=== PATIENT | female | born 1960 | race Caucasian/White ===

== ENCOUNTER 2024-12-03 14:58 | Outpatient (AMB) | payer OTHER, SELFPAY ==
--- NOTE | 2024-12-03 15:06 | A.OFFVIS_ITS ---
Intake Visit Reasons: tremors Allergies oxycodone Allergy (Unknown, Verified 11/29/24 11:29) Unknown Penicillins Allergy (Unknown, Verified 11/29/24 11:29) Unknown Medication List - Last Reconciled 12/03/24 by Ysabel Bermeo MD cholecalciferol (vitamin D3) 50 mcg PO DAILY ibuprofen 600 mg PO Q8H PRN triamcinolone acetonide 0.1% 1 appl topical BID HPI Comments Details: This is a 64-year-old right-handed woman who has generally been in good health who comes in for evaluation of tremors that she notes inside her and in her head and hands particularly if she is stressed the can get quite prominent. Most times she can function normally and it does not affect her ability to function in any way including her handwriting. There is no family history of tremor although her mother had Parkinson's disease. For the last couple of years she has also had tingling in her feet and sometimes in the hands and on her back if she is lying on it for a while. It comes and goes. Back usually feeds tingly when she 1st wakes up. She has no history of diabetes. She has inactive bronchial asthma and a history of anemia. [facility] Surgical History (Updated 11/29/24 @ 11:22 by ANTONIA Kline) Hx of tonsillectomy Hx of hysterectomy H/O colonoscopy Family History (Updated 11/29/24 @ 11:23 by ANTONIA Kline) Mother Thyroid disease Sister Breast cancer Maternal Aunt Breast cancer Review of Systems Musc Reports tingling Neuro Reports memory loss, Reports tingling and Reports tremor(s) Psych Reports memory loss Physical Exam Neuro Other: ?Mini Mental Status Exam Level of Consciousness:?Alert.? Orientation:?Knows correct year, month, date, day and season.?Knows correct city, county and state. Knows correct location and floor.? Registration:?Able to register 3 objects.? Attention:?Serial 7's performed accurately.? Recall:?Able to recall 3 out of 3 objects.? Language:?Normal spontaneous speech, fluency, repetition, naming, comprehension, reading, and writing.? Total Score:?30/30.? Neurological Abnormal neurological findings:??none.? Mental Status:?Alert and oriented X 3.?Normal attention, orientation, memory, and affect.? Cranial Nerves:?Pupils are equal, round and reactive to light. Fundoscopy shows normal disc bilaterally. External occular muscles are intact. Visual malave are full, no ptosis. Face is symmetrical, no facial weakness or droop. Facial sensations are normal. Tongue protrudes in midline. Palate elevates symmetrically. Shoulder shrugging is normal.? Motor Examination:?Normal muscle tone, bulk and strength.?No atrophy or fasciculations.?No drift of the extended upper extremities.?Deep tendon reflexes are 2+.?Plantars are flexor.? Motor Strength:? Proximal Muscles (out of 5):?5 Distal Muscles (out of 5):?5 Neck Flexors (out of 5):?5 Neck Extensors (out of 5):?5 Deltoid (out of 5):?5 Biceps (out of 5):?5 Triceps (out of 5):?5 Serratus Anterior (out of 5):?5 Wrist Extensors (out of 5):?5 APB (out of 5):?5 Finger Spread (out of 5):?5 Ileopsoas (out of 5):?5 Quadriceps (out of 5):?5 Hamstrings (out of 5):?5 Tibialis Anterior (out of 5):?5 Peronei (out of 5):?5 EDB (out of 5):?5 Gastrocnemius (out of 5):?5 Straight Leg Raising:?90 degrees.? Sensory Exam:?Normal light touch, temperature, pinprick, vibration and joint-position sensations.?Rhomberg sign is absent.? Coordination:?No ataxia,?no titubation,?wewtkh-hv-rpjx, iqxz-okls-[id number] test, and rapid alternating movements were normal.? Gait Exam:?Within normal limits.? Cerebellar Signs:?Aqpceh-[id number] and tjzf-ad-sxve is normal.?No dysdiadochokinesia.? Extrapyramidal System:?No tremor or?rigidity, normal facial expressions.?No bradykinesia. No bradyphrenia. Normal arm swing and posture. No propulsion or retropulsion.? Speech:?Normal,?no dysphasia or dysarthria.? General Examination GENERAL APPEARANCE:??normal,?in no acute distress?,?normal,?in no acute distress.? HEAD:??normocephalic,?atraumatic.? EYES:??sclera non-icteric,?conjunctiva clear.? EARS:??auditory canal clear,?tympanic membrane intact, clear.? NOSE:??no lesions.? ORAL CAVITY:??gums normal,?mucosa moist,?no lesions.? THROAT:??clear.? NECK/THYROID:??no cervical lymphadenopathy,?thyroid normal,?neck supple, full range of motion,?no carotid bruit.? SKIN:??no rashes,?no significant birthmarks.? HEART:??S1, S2 normal,?no murmurs?,?S1, S2 normal,?no murmurs.? LUNGS:??clear anteriorly and posteriorly?,?clear anteriorly and posteriorly.? CHEST:??no gross rib deformity,?clear to auscultation.? BACK:??normal exam of spine.? MUSCULOSKELETAL:??normal.? EXTREMITIES:??no edema?,?no edema.? PERIPHERAL PULSES:??normal.? PSYCH:??alert, oriented,?cognitive function intact,?cooperative with exam?,?alert, oriented,?cognitive function intact,?cooperative with exam.? 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 NCV LE for neuropathy Orders: Orders NE electromyogram (EMG) Today G62.9 - Polyneuropathy, unspecified NE nerve conduction velocity Today G62.9 - Polyneuropathy, unspecified Coding Level of Care Code New Pt Level 5 (79950) Diagnoses Benign essential tremor G25.0 Sensory neuropathy G62.9
--- OUTSIDE RECORDS SUMMARY | 2024-12-03 19:23 | XMS_ITS | Clinical Summary ---
Author Organization [facility] [address] [place] [address] [place] [phone] Phone Care Team Providers Care Casting Cleaner Name Role Phone Pamela Lal MD Primary Care Provider [phone] Allergies Active Allergy Reactions Criticality Noted Date Comments Oxycodone 11/08/2018 Liquid form Penicillins 11/08/2018 Medications triamcinolone (KENALOG) 0.1 % ointment APPLY LOCALLY TWICE A DAY, APPT NEEDED FOR FURTHER REFILLS 2 Active cholecalciferol (VITAMIN D-3) 50 mcg (2,000 unit) tablet Take 1 tablet (2,000 Units total) by mouth 1 (one) time each day. 4 Active calcium carbonate-emperatriz calciferol (Calcium 500 + D) 500 mg-10 mcg (400 unit) per tablet Take 1 tablet by mouth 2 (two) times a day. 4 Active cyclobenzaprine (FLEXERIL) 5 mg tablet Take 1 tablet (5 mg total) by mouth at bedtime as needed. 4 Active ibuprofen (ADVIL,MOTRIN) 600 mg tablet Take 1 Tablet by mouth every 8 hours as needed for Pain., Active alendronate (FOSAMAX) 70 mg tablet Take 1 Tablet by mouth every 7 days for 360 days Active minocycline 4 % foam Apply 1 Dose topically 1 (one) time each day. 60 g 1 5 Active erythromycin-be nzoyl peroxide (BENZAMYCIN) gel Apply topically at bedtime. 46.6 g 2 5 12/14/19 25 Active cholecalciferol (Vitamin D3) 50 mcg (2,000 unit) tablet Take 1 tablet (2,000 Units total) by mouth 1 (one) time each day. 90 tablet 2 5 Active erythromycin-be nzoyl peroxide (BENZAMYCIN) gel Apply topically at bedtime. 46.6 g 2 5 11/23/19 25 Encounters Date Type Department Care Team Description 09/09/2024 2:15 PM EDT Clinic Lab Collection Walk-In Clinic - [facility] [address] [place] [id number] Infective urethritis 09/09/2024 Telephone Internal Medicine - [facility] [address] [facility] [address] [place] [address] Pamela Lal MD from Last 3 Months Immunizations Immunization Administration Dates Next Due Influenza Quadravalent, MDCK , 0.5ml, preservative free (Flucelvax) 6mo and older 12/06/2018 Surgical History Surgery Date Site/Laterality Comments OTHER SURGICAL HISTORY PROCEDURE: MO ANESTHESIA VAGINAL HYSTERECTOMY INCL BIOPSY TONSILLECTOMY PROCEDURE: HISTORICAL TONSILLECTOMY COLONOSCOPY 2016 PROCEDURE: HISTORICAL COLONOSCOPY HYSTERECTOMY Medical History Medical History Date Comments Elevated liver enzymes 2016 DX:Elevat ed liver enzymes Family History Medical History Relation Name Comments Breast cancer Aunt mat Other: blood clot Father Thyroid disease Mother Breast cancer Sister 45 Relation Name Status Comments Aunt mat Alive Father Mother Sister 45 Social History Tobacco Use Types Packs/Day Years Used Date Smoking Tobacco: Never Smokeless Tobacco: Never Tobacco Cessation:Counseling Given: Not Answered Alcohol Use Standard Drinks/Week Comments No 0 (1 standard drink = 0.6 oz pur e alcohol) Housing Instability Answer Date Recorde d Are you worried that in the next 2 months you may not have stable housing? No 02/29/2024 Food Access & Nutrition Answer Date Rec orded Do you have access to a vari ety of food including fruits and vegetables? Yes 02/29/2024 Access to Healthcare Answer Date Record ed Within the last 3 months, chaya w many times did you visit the emergency department for your medical care? 0 02/29/2024 Health Literacy Answer Date Recorded How often do you need to hav e someone help you when you read instructions, pamphlets, or other written material from your doctor or pharmacy? Never 02/29/2024 Caregiver: How often do you need to have someone help you when you read instructions, pamphlets, or other written material from your doctor or pharmacy? Not on file 02/29/2024 Financial Risk Answer Date Recorded How hard is it for you to pa y for the very basics like food, housing, medical care, and air conditioning / heating? Not very hard 02/29/2024 Transportation Answer Date Recorded Has the lack of transportati on kept you from meetings, work, or from getting things needed for daily living? No Has the lack of transportati on kept you from medical appointments or from getting medications? No 02/29/2024 Social Isolation Answer Date Recorded How often do you feel lonely or isolated from ose around you? Never 02/29/2024 Food Risk Answer Date Recorded Within the past 12 months we worried whether our food would run out before we got money to buy more. Never true 02/29/2024 Within the past 12 months th e food we bought just didn't last and we didn't have money to get more. Never true 02/29/2024 Dependent Care Answer Date Recorded Do you need help finding or paying for care for your loved ones. For example, children teacher or elderly care for an older adult? No 02/29/2024 Education Answer Date Recorded Do you think completing more education or training, like finishing a GED, going to college, or learning a trade, would be helpful for you? N/A 02/29/2024 Employment and Income Answer Date Recor ded During the last four weeks, have you been actively looking for work? No 02/29/2024 Living Situation Answer Date Recorded What is your living situation? Unrecognized valu e 02/29/2024 Comments Unknown Sex and Gender Information Value Date Recorded Sex Assigned at Not on file Legal Sex Female 1:37 AM EST Gender Identity Not on file Sexual Orientation Not on file Obstetrics History Para Term AB IAB SAB Ectopic Multiple Livin g Live Births 3 3 3 3 Date Outcome GA Total Labor Labor/2nd/3rd Weight Sex Type Anes PTL Radha A1 A5 Name Clin Term Term Term Last Filed Vital Signs Vital Sign Reading Time Taken Comments Blood Pressure 126/82 08/30/2024 8:46 AM EDT Pulse 75 08/30/2024 8:46 AM EDT Temperature 36.2 C (97.2 F) 08/30/2024 8:46 AM EDT Respiratory Rate 18 08/30/2024 8:46 AM EDT Oxygen Saturation 96% 08/30/2024 8:46 AM EDT Inhaled Oxygen Concentration - - Weight 70.8 kg (156 lb) 08/30/2024 8:46 AM EDT Height 162.6 cm (5' 4.02 ) 08/30/2024 8:46 AM ED T Body Mass Index 26.76 08/30/2024 8:46 AM EDT Plan of Treatment Upcoming Encounters Date Type Department Care Team (Late st Contact Info) Description 09/05/2025 9:00 AM EDT Office Visit Internal Medicine - [address] [place] [address] Pamela Lal MD [address] [place] [phone] Health Maintenance Due Date Last Done Comments DTaP,Tdap,and Td Vaccines (1 - Tdap) 1980 Cervical Cancer Screening: Pap Smear 1982 Pneumococcal Vaccine: 50+ Years (1 of 1 - PCV) 04/20/2011 Zoster Vaccines (1 of 2) 04/20/2011 HIV Screening 01/15/2022 Hepatitis C Screening 01/15/2022 COVID-19 Vaccine ( season) 2024 02/18/2021, 06/16/2020, 05/19/2020 Influenza Vaccine (#1) 2024 9, 11/27/2017, 03/21/2016 Social Influencers of Health Screening 02/28/2025 02/29/2024 Colorectal Cancer Screening: Colonoscopy 07/07/2025 07/08/2015 Breast Cancer Screening 02/08/2026 02/08/19, 01/27/2023, 01/19/2022 Cholesterol Screening (Lipid Panel) 09/13/2029 09/13/2024, 08/11/2023, 08/11/2023, Additional history exists RSV Immunization Adult Patients (1 - 1-dose 75+ series) 2036 Depression Screening Completed 02/29/2024 HIB Vaccines Aged Out No longer eligi ble based on patient's age to complete this topic HPV Vaccines Aged Out No longer eligi ble based on patient's age to complete this topic Hepatitis A Vaccines Aged Out No long er eligible based on patient's age to complete this topic Hepatitis B Vaccines Aged Out No long er eligible based on patient's age to complete this topic IPV Vaccines Aged Out No longer eligi ble based on patient's age to complete this topic MMR Vaccines Aged Out No longer eligi ble based on patient's age to complete this topic Meningococcal ACWY Vaccine Aged Out N o longer eligible based on patient's age to complete this topic Meningococcal B Vaccine Aged Out No l onger eligible based on patient's age to complete this topic RSV Immunization Patients Under 20 months Aged Out No longer eligible based on patient's age to complete this topic Varicella Vaccines Aged Out No longer eligible based on patient's age to complete this topic Procedures Procedure Name Priority Date/Time Associated Diagnosis Comments COMPREHENSIVE METABOLIC PANEL Routine 09/13/2024 9:17 AM EDT Vitamin D deficiency Adult general medical examination Other fatigue LIPID PANEL WITH REFLEX TO DIRECT LDL Routine 09/13/2024 9:17 AM EDT Vitamin D deficiency Adult general medical examination Other fatigue COMPLETE BLOOD COUNT Routine 09/13/2024 9:17 AM EDT Vitamin D deficiency Adult general medical examination Other fatigue THYROID STIMULATING HORMONE Routine 09/13/2024 9:17 AM EDT Vitamin D deficiency Adult general medical examination Other fatigue VITAMIN B12 Routine 09/13/2024 9:17 AM EDT Vitamin D deficiency Adult general medical examination Other fatigue VITAMIN D 25 HYDROXY Routine 09/13/2024 9:17 AM EDT Vitamin D deficiency Adult general medical examination Other fatigue MONTILLA URINE CULTURE TUBE Routine 09/09/2024 2:13 PM EDT Infective urethritis URINALYSIS WITH REFLEX MICROSCOPIC AND CULTURE Routine 09/09/2024 2:13 PM EDT Infective urethritis URINALYSIS WITH REFLEX MICROSCOPIC AND CULTURE Routine 09/09/2024 2:13 PM EDT Infective urethritis CULTURE URINE Routine 09/09/2024 2:13 PM EDT Infective urethritis MG MAMMO DIGITAL SCREENING W MUMTAZ BILAT Routine 02/09/2024 8:48 AM EST Encounter for screening mammogram for breast cancer HM COLONOSCOPY Routine 07/08/2015 from Last 3 Months or Most Recently Relevant to Health Maintenance Results * (ABNORMAL) Lipid panel with reflex to direct LDL (09/13/2024 9:17 AM EDT) Cholesterol 206(H) 0 - 200 mg/dL LAB CHEMISTRY METHOD 09/13/2024 2:56 PM EDT [facility] Triglycerides 48 0 - 150 mg/dL LAB CHEMISTRY METHOD 09/13/2024 2:56 PM T [facility] HDL 69 >=40 mg/dL LAB CHEMISTRY METHOD 09/13/2024 2:56 PM [facility] LDL Calculated 127(H) 0 - 100 mg/dL LAB CHEMISTRY METHOD 09/13/2024 2:56 PM T [facility] Comment:Estimated LDL Calcul ated using equation: Total cholesterol - HDL cholesterol - (Triglycerides/5) VLDL Cholesterol Rufino 9.6 mg/dL LAB CHEMISTRY METHOD 09/13/2024 2:56 PM T [facility] Non HDL Chol. (LDL+VLDL) 137 <145 mg/dL LAB CHEMISTRY METHOD 09/13/2024 2:56 PM T [facility] Chol/HDL Ratio 3.0 0.0 - 4.4 LAB CHEMISTRY METHOD 09/13/2024 2:56 PM [facility] Blood Venous blood specimen / Unknown Venipuncture / Unknown 09/13/2024 9:17 AM EDT 09/13/2024 9:17 AM EDT us Pamela Lal MD LAB BLOOD ORDERABLES Final Res ult Performing Organization Address City/[facility]/ZIP Co de Phone Number [facility] [address] [place] [address], [place] [phone] * (ABNORMAL) Vitamin D 25 hydroxy (09/13/2024 9:17 AM EDT) [facility] Vit D, 25-Hydroxy 20.4(L) 30.0 - 80.0 ng/mL LAB CHEMISTRY METHOD 09/13/2024 3:22 PM EDT [facility] Blood Venous blood specimen / Unknown Venipuncture / Unknown 09/13/2024 9:17 AM EDT 09/13/2024 9:17 AM EDT us Pamela Lal MD LAB BLOOD ORDERABLES Final Res ult Performing Organization Address [facility] Co de Phone Number [facility] [address] [place] [address], [place] [phone] * (ABNORMAL) Complete blood count (09/13/2024 9:17 AM EDT) [facility] WBC 4.8 4.8 - 10.8 K/[facility] LAB HEMETOLOGY METHOD 09/13/2024 11:50 AM EDT [facility] RBC 4.90(H) 3.80 - 4.80 M/[facility] LAB HEMETOLOGY METHOD 09/13/2024 11:50 AM EDT [facility] Hemoglobin 14.6 11.5 - 16.0 g/dL LAB HEMETOLOGY METHOD 09/13/2024 11:50 AM EDT [facility] Hematocrit 44.1 35.0 - 47.0 % LAB HEMETOLOGY METHOD 09/13/2024 11:50 AM EDT [facility] MCV 90.7 79.0 - 98.0 FL LAB HEMETOLOGY METHOD 09/13/2024 11:50 AM EDT [facility] MCH 30.0 27.0 - 32.0 pcg LAB HEMETOLOGY METHOD 09/13/2024 11:50 AM EDT [facility] MCHC 33.1 32.0 - 37.0 g/dL LAB HEMETOLOGY METHOD 09/13/2024 11:50 AM EDT [facility] RDW 11.8 11.0 - 15.0 % LAB HEMETOLOGY METHOD 09/13/2024 11:50 AM EDT [facility] Platelets 235 130 - 400 K/mcL LAB HEMETOLOGY METHOD 09/13/2024 11:50 AM EDT [facility] MPV 9.6 7.0 - 11.0 FL LAB HEMETOLOGY METHOD 09/13/2024 11:50 AM EDT [facility] NRBC 0.0 <1.0 % LAB HEMETOLOGY METHOD 09/13/2024 11:50 AM EDT [facility] NRBC Absolute 0.00 <0.10 K/mcL LAB HEMETOLOGY METHOD 09/13/2024 11:50 AM [facility] Blood Venous blood specimen / Unknown Venipuncture / Unknown 09/13/2024 9:17 AM EDT 09/13/2024 9:17 AM EDT us Pamela Lal MD LAB BLOOD ORDERABLES Final Res ult [facility] [address] [place] [address], * Thyroid stimulating hormone (09/13/2024 9:17 AM EDT) TSH 0.48 0.40 - 4.00 mcIU/mL LAB CHEMISTRY METHOD 09/13/2024 3:22 PM EDT [facility] Blood Venous blood specimen / Unknown Venipuncture / Unknown 09/13/2024 9:17 AM EDT 09/13/2024 9:17 AM EDT Pamela Lal MD LAB BLOOD ORDERABLES Final Res ult Performing Organization Address City/[facility]/ZIP Co de Phone Number [facility] [address] [place] [address], [place] [phone] * Vitamin B12 (09/13/2024 9:17 AM EDT) Pathologist [facility] Vitamin B-12 445 250 - 900 pcg/mL LAB CHEMISTRY METHOD 09/13/2024 2:56 PM EDT [facility] Blood Venous blood specimen / Unknown Venipuncture / Unknown 09/13/2024 9:17 AM EDT 09/13/2024 9:17 AM EDT Pamela Lal MD LAB BLOOD ORDERABLES Final Res ult Performing Organization Address City/[facility]/ZIP Co de Phone Number [facility] [address] [place] [address], [place] [phone] * (ABNORMAL) Comprehensive metabolic panel (09/13/2024 9:17 AM EDT) [facility] Sodium 141 133 - 145 mmol/L LAB CHEMISTRY METHOD 09/13/2024 3:19 PM EDT [facility] Potassium 4.5 3.5 - 5.5 mmol/L LAB CHEMISTRY METHOD 09/13/2024 3:19 PM EDT [facility] Chloride 109 96 - 110 mmol/L LAB CHEMISTRY METHOD 09/13/2024 3:19 PM EDT [facility] CO2 28 21 - 32 mmol/L LAB CHEMISTRY METHOD 09/13/2024 3:19 PM EDT [facility] Anion Gap 4 3 - 11 LAB CHEMISTRY METHOD 09/13/2024 3:19 PM [facility] Glucose 84 70 - 100 mg/dL LAB CHEMISTRY METHOD 09/13/2024 3:19 PM [facility] BUN 17 5 - 25 mg/dL LAB CHEMISTRY METHOD 09/13/2024 3:19 PM [facility] Creatinine 0.82 0.50 - 1.10 mg/dL LAB CHEMISTRY METHOD 09/13/2024 3:19 PM [facility] eGFR 80 >=60 mL/min/1. 73m2 LAB CHEMISTRY METHOD 09/13/2024 3:19 PM [facility] Comment:Calculation based on the Chronic Kidney Disease Epidemiology Collaboration (CKD-EPI) equation refit without adjustment for race. BUN/Creatinine Ratio 20.7 LAB CHEMISTRY METHOD 09/13/2024 3:19 PM [facility] Calcium 9.1 8.5 - 10.5 mg/dL LAB CHEMISTRY METHOD 09/13/2024 3:19 PM [facility] AST (SGOT) 67(H) 10 - 42 unit/L LAB CHEMISTRY METHOD 09/13/2024 3:19 PM [facility] ALT (SGPT) 32 10 - 60 unit/L LAB CHEMISTRY METHOD 09/13/2024 3:19 PM [facility] Alkaline Phosphatase 84 42 - 121 unit/L LAB CHEMISTRY METHOD 09/13/2024 3:19 PM [facility] Total Protein 6.7 6.0 - 8.0 g/dL LAB CHEMISTRY METHOD 09/13/2024 3:19 PM [facility] Albumin 3.9 3.2 - 5.0 g/dL LAB CHEMISTRY METHOD 09/13/2024 3:19 PM [facility] Total Bilirubin 0.6 0.0 - 1.4 mg/dL LAB CHEMISTRY METHOD 09/13/2024 3:19 PM [facility] Blood Venous blood specimen / Unknown Venipuncture / Unknown 09/13/2024 9:17 AM EDT 09/13/2024 9:17 AM EDT us Pamela Lal MD LAB BLOOD ORDERABLES Final Res ult [facility] [address] [place] [address], [place] [phone] * (ABNORMAL) Urinalysis with reflex microscopic and culture (09/09/2024 2:13 PM EDT) Specific [place] Urine LAB URINALYSIS - AUTOMATED METHOD 09/09/2024 8:29 PM EDT [facility] Comment:Unable to interpret due to color interference. pH, Urine LAB URINALYSIS - AUTOMATED METHOD 09/09/2024 8:29 PM EDT [facility] Comment:Unable to interpret due to color interference. Leukocytes, Urine LAB URINALYSIS - AUTOMATED METHOD 09/09/2024 8:29 PM EDT [facility] Comment:Unable to interpret due to color interference. Nitrite, Urine LAB URINALYSIS - AUTOMATED METHOD 09/09/2024 8:29 PM EDT [facility] Comment:Unable to interpret due to color interference. Protein, Urine LAB URINALYSIS - AUTOMATED METHOD 09/09/2024 8:29 PM EDT [facility] Comment:Unable to interpret due to color interference. Glucose, Urine LAB URINALYSIS - AUTOMATED METHOD 09/09/2024 8:29 PM EDT [facility] Comment:Unable to interpret due to color interference. Ketones, Urine LAB URINALYSIS - AUTOMATED METHOD 09/09/2024 8:29 PM EDT [facility] Comment:Unable to interpret due to color interference. Urobilinogen, Urine LAB URINALYSIS - AUTOMATED METHOD 09/09/2024 8:29 PM EDT [facility] Comment:Unable to interpret due to color interference. Bilirubin, Urine LAB URINALYSIS - AUTOMATED METHOD 09/09/2024 8:29 PM EDT [facility] Comment:Unable to interpret due to color interference. Blood, Urine LAB URINALYSIS - AUTOMATED METHOD 09/09/2024 8:29 PM EDT [facility] Comment:Unable to interpret due to color interference. RBC, Urine 5.7(H) 0 - 4 /HPF LAB URINALYSIS - AUTOMATED METHOD 09/09/2024 8:29 PM EDT [facility] WBC, Urine 73.5(H) 0 - 4 /HPF LAB URINALYSIS - AUTOMATED METHOD 09/09/2024 8:29 PM EDT [facility] Squamous Epithelial, Urine 8 0 - 60 /LPF LAB URINALYSIS - AUTOMATED METHOD 09/09/2024 8:29 PM EDT [facility] Bacteria, Urine Many(A) Negative /HPF LAB URINALYSIS - AUTOMATED METHOD 09/09/2024 8:29 PM EDT [facility] Hyaline Casts, Urine 0.38 0 - 3 /LPF LAB URINALYSIS - AUTOMATED METHOD 09/09/2024 8:29 PM EDT [facility] Urine Urine specimen obtained by clean catch procedure / Unknown Non-blood Collection / Unknown 09/09/2024 2:13 PM EDT 09/09/2024 2:13 PM EDT us Pamela Lal MD LAB URINE ORDERABLES Final Res ult [facility] [address] [place] [address], * Montilla urine culture tube (09/09/2024 2:13 PM EDT) Extra Tube Hold for add-ons. 09/09/2024 8:01 PM EDT [facility] Comment:Auto resulted. Urine Urine specimen obtained by clean catch procedure / Unknown Non-blood Collection / Unknown 09/09/2024 2:13 PM EDT 09/09/2024 2:13 PM EDT Pamela Lal MD LAB URINE ORDERABLES Final Res ult [facility] [address] [place] [address], [place] [phone] * (ABNORMAL) Culture urine (09/09/2024 2:13 PM EDT) Culture, Urine >=100,000 CFU/mL Escherichia coli(A) TERA 09/11/2024 10:06 AM EDT [facility] Comment: This is an edited result. Previous organism was Gram negative bacilli on 09/10/2024 at 1345 EDT. Urine Urine specimen obtained by clean catch procedure / Unknown Non-blood Collection / Unknown 09/09/2024 2:13 PM EDT 09/09/2024 8:29 PM EDT Narrative Organism Antibiotic Method Susceptibility Escherichia coli Amoxicillin/Clavulanate TERA 16 ug/ml: Intermediate Escherichia coli Ampicillin/Sulbactam TERA >=32 ug/ml: Resistant Escherichia coli Piperacillin/Tazobactam TERA <=4 ug/ml: Susceptible Escherichia coli Cefazolin (Urine) TERA 8 ug/ml: Susceptible Escherichia coli Cefoxitin TERA <=4 ug/ml: Susceptible Escherichia coli Ceftazidime TERA <=0.5 ug/ml: Susceptible Escherichia coli Ceftriaxone TERA <=0.25 ug/ml: Susceptible Escherichia coli Cefepime TERA <=0.12 ug/ml: Susceptible Escherichia coli Meropenem TERA <=0.25 ug/ml: Susceptible Escherichia coli Amikacin TERA 4 ug/ml: Susceptible Escherichia coli Gentamicin TERA <=1 ug/ml: Susceptible Escherichia coli Ciprofloxacin TERA <=0.06 ug/ml: Susceptible Escherichia coli Levofloxacin TERA <=0.12 ug/ml: Susceptible Escherichia coli Nitrofurantoin TERA <=16 ug/ml: Susceptible Escherichia coli Trimethoprim/Sulfamethoxazole TERA <=20 ug/ml: Susceptible Pamela Lal MD LAB MICROBIOLOGY - GENERAL ORD ERABLES Final Result [facility] [address] [place] [address], * MG Mammo Digital Screening w Mumtaz bilat (02/09/2024 8:48 AM EST) Anatomical Region Laterality Modality Breast Bilateral Mammography 02/09/2024 3:48 PM EST Impressions 02/09/2024 3:51 PM EST 1. No mammographic evidence of malignancy 2. Scattered fibroglandular tissue BI-RADS CATEGORY: 2 - BENIGN RECOMMENDATION: Screening bilateral mammogram is recommended in 1 year. Mammo Location: [facility], [address] [place] [address], [id number], . -------- FINAL REPORT -------- Dictated By: Jasmine Dailey Dictated Date: 02/09/2024 15:48 ET Assigned Physician: Jasmine Dailey Reviewed and Electronically Signed By: Jasmine Dailey Signed Date: 02/09/2024 15:51 ET Workstation ID: [id number] Transcribed By: Self Edit Transcribed Date: 02/09/2024 15:48 ET Narrative 02/09/2024 3:51 PM EST A BILATERAL DIGITAL 3D SCREENING MAMMOGRAPHY HISTORY: Routine screening. Family history of breast cancer in sister and aunt COMPARISON: Multiple priors dating back to 01/19/2022 Technique: Bilateral full field digital mammography (3D) was performed using standard CC and MLO projections CAD was used to evaluate this mammogram. FINDINGS: Right: No suspicious masses, groups of microcalcification or areas of architectural distortion identified. Stable typically benign parenchymal asymmetries. Left: No suspicious masses, groups of microcalcification or areas of architectural distortion identified. Stable typically benign parenchymal asymmetries.Stable superior breast focal asymmetry. BREAST DENSITY: B - There are scattered areas of fibroglandular density. Procedure Note Jasmine Dailey MD - 02/09/2024 A BILATERAL DIGITAL 3D SCREENING MAMMOGRAPHY HISTORY: Routine screening. Family history of breast cancer in sister andaunt COMPARISON: Multiple priors dating back to 01/19/2022 Technique: Bilateral full field digital mammography (3D) was performedusing standard CC and MLO projections CAD was used to evaluate this mammogram. FINDINGS: Right: No suspicious masses, groups of microcalcification or areas ofarchitectural distortion identified. Stable typically benign parenchymalasymmetries. Left: No suspicious masses, groups of microcalcification or areas ofarchitectural distortion identified. Stable typically benign parenchymalasymmetries.Stable superior breast focal asymmetry. BREAST DENSITY: B - There are scattered areas of fibroglandular density. IMPRESSION: 1. No mammographic evidence of malignancy 2. Scattered fibroglandular tissue BI-RADS CATEGORY: 2 - BENIGN RECOMMENDATION: Screening bilateral mammogram is recommended in 1 year. Mammo Location: [facility], [address] [place] [address], [phone], . -------- FINAL REPORT -------- Dictated By: Jasmine Dailey Dictated Date: 02/09/2024 15:48 ET Assigned Physician: Jasmine Dailey Reviewed and Electronically Signed By: Jasmine Dailey Signed Date: 02/09/2024 15:51 ET Workstation ID: [id number] Transcribed By: Self Edit Transcribed Date: 02/09/2024 15:48 ET Pamela Lal MD IMG BI PROCEDURES Final Result * Colonoscopy (07/08/2015) Colonoscopy No Interpretation , Abstracted Anatomical Region Laterality Modality Other Historical Provider HEALTH MAINTENANCE Final Result from Last 3 Months or Most Recently Relevant to Health Maintenance Insurance [employer] Care Teams Casting Cleaner Relationship Specialty Start Date End Date Pamela Lal MD [address] [facility] [address] [place] [address] PCP - General Internal Medicine 02/09/24
--- OUTSIDE RECORDS SUMMARY | 2024-12-03 19:23 | XMS_ITS | Clinical Summary ---
Author Organization [employer] Address [address] [facility] [place] [place] [address] Care Team Providers Care Nuclear Physics Professor Name Role Phone No, Pcp HIDE SORTER Primary Care Provider Unavailabl e Allergies Active Allergy Reactions Criticality Noted Date Comments Ibuprofen Swelling 03/21/2016 Oxycodone Rash Low 03/21/2016 Penicillins Anaphylaxis High 03/31/2014 Tylenol Jr Strength Rash,Other (See Comments) Low 0 03/21/2016 Medications No known medications Immunizations Immunization Administration Dates Next Due Fluarix Quadrivalent Prefilled Syringe 7 Social History Tobacco Use Types Packs/Day Years Used Date Smoking Tobacco: Never Smokeless Tobacco: Never Comments No Sex and Gender Information Value Date Recorded Sex Assigned at Not on file Legal Sex Female 3:39 AM EDT Gender Identity Not on file Sexual Orientation Not on file Last Filed Vital Signs Vital Sign Reading Time Taken Comments Blood Pressure 102/64 03/28/2018 1:46 PM EST Pulse 66 03/28/2018 1:46 PM EST Temperature 36.6 C (97.9 F) 03/31/2014 9:55 AM EST Respiratory Rate 12 03/28/2018 1:46 PM EST Oxygen Saturation 98% 03/28/2018 1:46 PM EST Inhaled Oxygen Concentration - - Weight 68.5 kg (151 lb) 03/28/2018 1:46 PM EST Height 163.8 cm (5' 4.5 ) 03/28/2018 1:46 PM EST Body Mass Index 25.52 03/28/2018 1:46 PM EST Plan of Treatment Health Maintenance Due Date Last Done Comments Colorectal Cancer: COLONOSCO PY Screening every 10 yrs (or Modifier) 1961 Depression: Screening Annual ly using PHQ-2/9 in Adults 18 yrs or above (or HM Modifier)([facility]) 04/20/1979 Hepatitis C Virus Infection in Adolescents and Adults: Screening (or Modifier) ([facility]) 04/20/1979 SDOH Screening Reminder: Vidhi colvin for all adults ([facility]) 04/20/1979 Tobacco Smoking Cessation: i n Adults excluding Women: Behavioral and Pharmacotherapy Interventions ([facility]) 04/20/1979 DTaP/Tdap/Td Vaccines ([facility]) (1 - Tdap) 1980 Colorectal Cancer Screening 45 -75 Yrs (or HM Modifier) 2006 Colorectal Cancer: FLEXIBLE SIGMOIDOSCOPY Screening every 5 yrs 2006 Colorectal Cancer: Fecal Imm unochemical Test (FIT) Annually [facility] 2006 Colorectal Cancer: High-sens itivity gFOBT Screening Annually [facility] 2006 Colorectal Cancer: Stool Col oguard Screening every 3 yrs 2006 Colorectal Cancer:CT Colonog amado Screening every 5 yrs 2006 Breast Cancer: Screening Vidhi vinicius age 50-74 yrs (or HM Modifier)([facility]) 04/20/2011 Pneumococcal Vaccination Scr eening: Patients 50+ yrs of age ([facility]) (1 of 1 - PCV) 04/20/2011 Zoster/Shingles Vaccine Seri es Screening: Adults aged 18+ yrs (or HM Modifiers)([facility]) (1 of 2) 04/20/2011 Flu Vaccination: Yearly for ages 18mos through 64 years (or Modifier)([facility]) 09/06/2024 03/21/2016 COVID-19 Vaccine Screening: Initial Series and Booster Status ([facility]) ( - 2023-25 season) 2024 RSV Vaccines (1 - 1-dose 75+ series) 2036 [employer] Not on file Care Teams Nuclear Physics Professor Relationship Specialty Start Date End Date No, Pcp, HIDE SORTER N/A Do not use PCP - General 03/31/14
--- OUTSIDE RECORDS SUMMARY | 2024-12-03 19:23 | XMS_ITS | Patient Health Record ---
Author Organization [facility] Address [address] [place] [address] Care Team Providers Care Property Disposal Manager Name Role Phone Hali JAY, [facility] Primary Care Provider Unavailab luis fernando Faby Shields Unavailable [phone] Allergies Allergen (clinical drug ingredient) Drug/Non Drug Allergy documented on EMR Reaction Allergy Type Onset Date Status amoxicillin Amoxicillin Unknown Drug Allergy Act sabrina doxycycline Doxycycline Hyclate rash Drug Allergy Active Reason For Referral No Information Medications Medication SIG (Take, Route, Frequency, Duration) Notes Start Date End Date Status Doxycycline Hyclate 100 MG 1 capsule Orally Once a day; Duration: 10 day(s) 12/04/2019 Not-Taking Clotrimazole 1 % 1 application to affected area Externally Twice a day Not-Takin g Calcium 1 tab Oral Active vitamin D Active Social History Tobacco Use: Social History Observation Description Date Details (start date - stop date) Former Smoker NA - NA Tobacco Use/Smoking Question Answer Notes Are you a: former smoker When did you stop smoking? 1989 Additional Findings: Tobacco Non-User Current no n-smoker Alcohol Screen Question Answer Notes Did you have a drink containing alcohol in the p ast year? No Points 0 Interpretation Negative Tobacco use other than smoking: Question Answer Notes Are you an other tobacco user? No Problems Problem Type SNOMED Code ICD Code Onset Dates Problem Status W/U Status Risk Notes Problem Acquired hallux valgus (65555164) Hallux valgus (acquired), left foot (M20.12) Active confirmed Problem Non-pressure chronic ulcer of other part of right foot limited to breakdown of skin (L97.511) Active confirmed Problem Acquired hallux valgus (38759595) Hallux valgus (acquired), right foot (M20.11) Active confirmed Problem Acquired hammer toe of right foot (3451064704485 105) Other hammer toe(s) (acquired), right foot (M20.41) Active confirmed Problem Plantar nerve lesion (498713224) Lesion of plantar nerve, 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) Active confirmed Plan Of Treatment Pending Test Test Name Order Date [id number] Plate 08/27/2018 [id number] 12/04/2019 72567- Debride <25 sq cm 01/08/2020 09554- Debride <25 sq cm 09/11/2018 [id number] SKIN/TISSUE 12/20/2019 Nail Panel 05/26/2017 Insurance Providers Payer Name Payer Address Payer Phone Subscriber Number Group Number Insured Name Patient Relationship to Insured Coverage Start Date Coverage End Date [employer] Choice POS [address] [address] [place] [address] [id number] Rachelle Ashley Self - patient is the insured Medical (General) History Medical History History ICD Code Chicken pox Surgical History Surgery Date(Month/Year) section 1990,1996,1999
== END 2024-12-03 15:21 | disposition home or self-care (01) ==
LOC: HO.HSM 14:59
PROVIDERS: PCP Internal Medicine; Visit Provider Psychiatry & Neurology Neurology
DX: G25.0 Essential tremor (principal); G62.9 Polyneuropathy, unspecified
CPT/HCPCS: 99204

== ENCOUNTER → 2024-12-03 14:58 | Outpatient (BNVA) | payer OTHER, SELFPAY | PROVIDERS: PCP Internal Medicine; Visit Provider Psychiatry & Neurology Neurology | DX: G25.0 Essential tremor (principal); G62.9 Polyneuropathy, unspecified | CPT/HCPCS: 99202 ==

== ENCOUNTER 2024-12-25 14:06 | Outpatient (REF) | payer OTHER, SELFPAY ==
--- NOTE | 2024-12-25 14:51 | EMG_ITS ---
Chief complaint:?Numbness Reason for referral: G62.9 Polyneuropathy, unspecified Procedure done: Bilateral lower extremities NCS/EMG Impression: Normal motor and sensory nerve conduction velocities of the lower extremities. Normal EMG of the left L4-S1 innervated muscles. Please see detailed neurophysiological report Coding: ? [id number] 1 extremity MTDD
--- OUTSIDE RECORDS SUMMARY | 2024-12-26 02:29 | XMS_ITS | Patient Health Record ---
Author Organization [facility] Address [address] [place] [address] Care Team Providers Care Corner Trimmer Operator Name Role Phone Hali JAY, [facility] Primary Care Provider Unavailab luis fernando Faby Shields Unavailable [phone] Allergies Allergen (clinical drug ingredient) Drug/Non Drug [...] Status Risk Notes Problem Acquired hallux valgus (48351976) Hallux valgus (acquired), left foot (M20.12) Active confirmed Problem Non-pressure chronic ulcer of other part of right foot limited to breakdown of skin (L97.511) Active confirmed Problem Acquired hallux valgus (71346317) Hallux valgus (acquired), right foot (M20.11) Active confirmed Problem Acquired hammer toe of right foot (9004435805071 105) Other hammer toe(s) (acquired), right foot (M20.41) Active confirmed Problem Plantar nerve lesion (711437400) Lesion of plantar nerve, 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) Active confirmed Plan Of Treatment Pending Test Test Name Order Date [id number] Plate 08/27/2018 [id number] 12/04/2019 59665- Debride <25 sq cm 01/08/2020 21562- Debride <25 sq cm 09/11/2018 [id number] SKIN/TISSUE 12/20/2019 Nail Panel 05/26/2017 Insurance Providers Payer Name Payer Address Payer Phone Subscriber Number Group Number Insured Name Patient Relationship to Insured Coverage Start Date Coverage End Date [employer] Choice POS [address] [address] [place] [phone] [id number] Rachelle Ashley Self - patient is the insured Medical (General) History Medical History History ICD Code Chicken pox Surgical History Surgery Date(Month/Year) section 1990,1996,1999
== END 2024-12-25 14:07 | disposition home or self-care (01) ==
LOC: HO.NEURO 14:06
PROVIDERS: PCP Internal Medicine; Visit Provider Psychiatry & Neurology Neurology
DX: R20.0 Anesthesia of skin (principal); G62.9 Polyneuropathy, unspecified
CPT/HCPCS: 95885; 95913

== ENCOUNTER → 2024-12-25 14:51 | Outpatient (BNV) | payer OTHER, SELFPAY | PROVIDERS: PCP Internal Medicine; Visit Provider Psychiatry & Neurology Neurology | DX: G62.9 Polyneuropathy, unspecified (principal) | CPT/HCPCS: 95886; 95913 ==